=== PATIENT | female | born 1940 | race Caucasian/White ===

== ENCOUNTER 2019-03-12 12:40 | Emergency (ER) | payer OTHER ==
--- NOTE | 2019-03-12 13:12 | PDOC ---
History of Present Illness - General Chief Complaint: Injury Stated Complaint: FALL Time Seen by Provider: 03/12/19 13:11 History Source: Patient Exam Limitations: No Limitations - History of Present Illness Initial Comments: 03/12/19 13:11 Sources: Patient (aphasic) and [facility] records HPI: 78yo F BIBEMS from [place] with PMH osteoporosis, cognitive impairment, bipolar disorder, cyclothymic disorder presenting s/p witnessed fall while transferring to wheelchair. Patient with cognitive impairment and aphasia at baseline. Not on blood thinners. No recent illnesses, sent in with stable vitals. All: NKDA Meds: Pregabalin 25mg daily PMH: psychiatric PSH: unknown Past History - Travel Traveled outside of the country in the last 30 days: No Close contact w/someone who was outside of country & ill: No - Past Medical History Allergies/Adverse Reactions: Allergies Allergy/AdvReac Type Severity Reaction Status Date / Time No Known Allergies Allergy Verified 03/12/19 13:40 Home Medications: Ambulatory Orders Chlorhexidine Gluconate 10 ml MM AC 03/12/19 Pregabalin [Lyrica] 25 mg PO BID 03/12/19 Pseudoephedrine HCl [Nasal Decongestant] 30 mg PO Q8H PRN 03/12/19 Review of Systems - Review of Systems Able to Perform ROS?: No (patient condition) Is the patient limited Romanian proficient: No *Physical Exam - Physical Exam Comments: 03/12/19 13:50 Afebrile with stable vitals, HR in upper 40s at rest Elderly woman, laying in bed with eyes closed, no acute distress, minimally interactive with exam Large baseball sized bruise on forehead, no crepitus / step off, no epistaxis or morphologic changes EOMI, PERRL RRR, nl s1s2, no murmurs appreciated CTABL, normal WOB, no wheezes appreciated Soft, nontender, nondistended Patient nonverbal, opens eyes to voice, looks around the room, said "yes" once but doesn't respond to questions about pain ED Treatment Course - LABORATORY CBC & Chemistry Diagram: 03/12/19 14:20 03/12/19 14:20 Medical Decision Making - Medical Decision Making 03/12/19 13:43 78yo woman BIBEMS from CT ([facility]) s/p fall while transitioning to wheelchair with head trauma. -CBC, CMP, CP -Lipase, BNP, PT/INR, PTT -EKG, CXR -NCHCT 03/12/19 14:29 -EKG with sinus bradycardia, normal axis, normal morphologies, no ischemic changes evident 03/12/19 14:44 -Call placed to patient Primary Doctor, Lindy Joseph ([phone]), left a voicemail -Patient is currently at CT 03/12/19 15:06 -CXR without acute pathology -NCHCT without bleed, chronic changes apparent 03/12/19 15:07 -No leukocytosis or anemia, no electrolyte disturbances, normal troponin, normal lipase and coags 03/12/19 15:15 -Call placed to patient's NH, transferred to voicemail 03/12/19 15:37 -Spoke with patient's PCP Dr. Joseph, patient is at baseline when she opens here eyes to voice, occasionally gives a "yes or mhmm" and will smile at a very good joke or may recognize her sister on a good day. This baseline is consistent with her ED presentation. Reports the patient has a reclining wheelchair and an electric mechanical lift and would have have at least two people with her at the time of her fall and "it could not have been a very hard fall." -Dr. Joseph plants to see the patient tomorrow morning. -[facility] has yet to place a return phone call. -NCHCT without sign of bleed, labs unremarkable. Patient safe for discharge back to facility. Dispo: home Discharge - Discharge Information Problems reviewed: Yes Clinical Impression/Diagnosis: Fall Qualifiers: Encounter type: initial encounter Qualified Code(s): W19.XXXA - Unspecified fall, initial encounter Condition: Stable Disposition: [facility] - Admission No - Follow up/Referral Referrals: Lindy Joseph [Primary Care Provider] - - Patient Discharge Instructions Patient Printed Discharge Instructions: How to Prevent Falls Additional Instructions: Patient at baseline with non-contrast head CT without signs of acute intracranial pathology. Labs unremarkable. EKG with sinus bradycardia. - Post Discharge Activity - Transfer to Acute Care Facility Transfer Comment: 03/12/19 15:[address] [facility] [address] [place] [address]
[2019-03-12 13:36] VITALS: PULSE 45; BMI 23.3
[2019-03-12 13:40] VITALS: BP 126/64; TEMP 98
[2019-03-12 14:34] LABS: BASO % 0.5 % (0-2.0); HEMATOCRIT 43.9 % (32.4-45.2); HEMOGLOBIN 14.8 GM/dL (10.7-15.3); LYMPH % 20.7 % (8-40); MCHC 33.7 g/dl (32.0-36.0); MEAN CELL VOLUME 92.1 fl (80-96); MEAN PLT VOLUME 7.7 fl (7.5-11.1); NEUT % 68.8 % (42.8-82.8); PLATELET COUNT 227 K/MM3 (134-434); RBC 4.77 M/mm3 (3.60-5.2); RDW 13.5 % (11.6-15.6); WHITE BLOOD COUNT 5.2 K/mm3 (4.0-10.0)
[2019-03-12 14:44] LABS: INR 0.9 (0.83-1.09); PROTHROMBIN TIME (PATIENT) 10.6 SEC (9.7-13.0)
[2019-03-12 14:46] LABS: ACTIVATED PTT 28.9 SECONDS (25.2-36.5)
[2019-03-12 14:59] LABS: ALBUMIN 3.5 g/dl (3.4-5.0); BILIRUBIN,TOTAL 0.5 mg/dL (0.2-1); BLOOD UREA NITROGEN 24.2 mg/dL (7-18); CALCIUM 9.3 mg/dL (8.5-10.1); POTASSIUM 4.7 mmol/L (3.5-5.1); TOT PROT 7.3 g/dl (6.4-8.2)
--- NOTE | 2019-03-12 16:21 | PDOC ---
Documentation entered by Cindy Fitch SCRIBE, acting as scribe for Campbell Wen MD. Campbell Wen MD: This documentation has been prepared by the Little aguillon Adrianna, SCRIBE, under my direction and personally reviewed by me in its entirety. I confirm that the documentation accurately reflects all work, treatment, procedures, and medical decision making performed by me. Attending Attestation - Resident Resident Name: MichaelMaksim - ED Attending Attestation I have performed the following: I have examined & evaluated the patient, The case was reviewed & discussed with the resident, I agree w/resident's findings & plan, Exceptions are as noted - HPI HPI: The patient is a 78 year old female, with a significant PMH of osteoporosis, cognitive impairment, bipolar disorder, and cyclothymic disorder, who presents to the ED BIBA from [facility] for evaluation s/p unwitnessed fall. As per nursing note, patient fell while getting out of her wheelchair. She hit her head, and presents with a bruise to the left side of the forehead. HPI is limited secondary to patient being a non-historian. Allergies: NKA, NKDA Surgical History: None reported Social History: [facility] resident. Not toxic habits - Physicial Exam PE: 03/12/19 16:15 GENERAL: The patient is awake, alert, oriented x 1. HEAD: Normocephalic, contusion to frontl scalp withou crepitus, stepoffs, sof tissue swelling. EYES: sclera anicteric, conjunctiva clear. ENT: Normal voice, Moist mucous membranes. NECK: supple, no mildine tenderness LUNGS: Breath sounds equal, clear to auscultation bilaterally. No wheezes, no rhonchi, no rales. HEART: bradycardic ABDOMEN: Soft, nontender EXTREMITIES: Normal range of motion of hip. knees, hip and knee held in contracted posiiton but is abl eto flex/extend without any pain NEUROLOGICAL: No facial assymetry, Normal speech, PSYCH:flat affect. SKIN: Warm, Dry, normal turgor, - Medical Decision Making 03/12/19 14:46 78y F preseneting spfall while transitinning to wheelchair. history limited from pt and resident was able to obtain some data from the [place] will obtain lab work and imaging 03/12/19 16:20 ct negative labs reviewed pt at baseline metnal status per PMD will dc back [facility]
--- NOTE | 2019-03-14 08:28 | EKG ---
Test Reason : Blood Pressure : / mmHG Vent. Rate : 046 BPM Atrial Rate : 046 BPM P-R Int : 212 ms QRS Dur : 078 ms QT Int : 444 ms P-R-T Axes : 041 009 054 degrees QTc Int : 388 ms SINUS BRADYCARDIA WITH 1ST DEGREE A-V BLOCK OTHERWISE NORMAL ECG NO PREVIOUS ECGS AVAILABLE Confirmed by Maxine Arboleda ([id number]) on 03/14/2019 8:28:04 AM Referred By: Confirmed By:Maxine Arboleda
== END 2019-03-12 17:10 ==
LOC: JER 12:40
DX: S00.83XA Contusion of other part of head, initial encounter (principal); W05.0XXA Fall from non-moving wheelchair, initial encounter; Y93.89 Activity, other specified; Y92.122 Bedroom in nursing home as the place of occurrence of the external cause; Y99.8 Other external cause status; R47.01 Aphasia; G31.84 Mild cognitive impairment of uncertain or unknown etiology; F31.9 Bipolar disorder, unspecified; M19.90 Unspecified osteoarthritis, unspecified site; F34.0 Cyclothymic disorder
CPT/HCPCS: 36415; 70450-TC; 71045-TC-FY; 80053; 82550; 84484; 85025; 85610; 85730; 93005; 93010; 99282-25

== ENCOUNTER 2019-03-17 11:03 | Inpatient (IN) | payer OTHER ==
[2019-03-17 11:37] VITALS: BMI 23.3
--- NOTE | 2019-03-17 13:01 | PDOC ---
Documentation entered by Cindy Fitch SCRIBE, acting as scribe for Nicole Villafuerte MD. Nicole Villafuerte MD: This documentation has been prepared by the Little aguillon Adrianna, SCRIBE, under my direction and personally reviewed by me in its entirety. I confirm that the documentation accurately reflects all work, treatment, procedures, and medical decision making performed by me. History of Present Illness - General Chief Complaint: Wound Stated Complaint: Abscess Boil Time Seen by Provider: 03/17/19 11:50 History Source: Patient Exam Limitations: No Limitations - History of Present Illness Initial Comments: The patient is a 78 year old female, with a significant PMH of osteoporosis, cognitive impairment, bipolar disorder, and cyclothymic disorder, who presents to the ED BIBA from [facility] for evaluation blistering for 4 days (r/o shingles as per nursing note). As per nursing note, patient developed a blister on her left thigh. The patient continuously scratched the blister, and it traveled to bilateral upper and lower extremities. She was placed on Valacyclovir 3 days ago and Calamine lotion 2 days ago without any change in symptoms. HPI is limited secondary to patient being a non-historian. Patient is DNR, DNI, and limited antibiotic use as per nursing note paperwork. Allergies: NKA, NKDA Surgical History: None reported Social History: [facility] resident. Not toxic habits PCP: Dr. Joseph Past History - Past Medical History Allergies/Adverse Reactions: Allergies Allergy/AdvReac Type Severity Reaction Status Date / Time No Known Allergies Allergy Verified 03/18/19 05:43 Home Medications: Ambulatory Orders Chlorhexidine Gluconate 10 ml MM AC 03/12/19 Pregabalin [Lyrica] 25 mg PO BID 03/12/19 Pseudoephedrine HCl [Nasal Decongestant] 30 mg PO Q8H PRN 03/12/19 Calamine 8% Topical Lotion - 1 applic TP BID 03/17/19 Calcium Acetate/Aluminum Sulf [Domeboro Packet] 1 each TP BID PRN #60 packet Niacin*ER* [Niaspan (Non-Formulary)*ER* -] 500 mg PO DAILY #30 tablet.er Valacyclovir HCl [Valtrex -] 500 mg PO DAILY 03/17/19 predniSONE [Deltasone -] 60 mg PO DAILY #20 tablet 03/17/19 COPD: No Psychiatric Problems: Yes (cytlothymic disorder, bipolar, cognitive imparment) Thyroid Disease: (osteroporosis.) - Immunization History Immunization Up to Date: Yes - Psycho Social/Smoking Cessation Hx Smoking History: Unknown if ever smoked Have you smoked in the past 12 months: No Information on smoking cessation initiated: No Hx Alcohol Use: No Drug/Substance Use Hx: No Review of Systems - Review of Systems Able to Perform ROS?: No (2/2 non-historian) *Physical Exam - Vital Signs Last Vital Signs Temp Pulse Resp BP Pulse Ox 98.8 F 63 17 101/80 98 03/17/19 11:20 03/17/19 11:20 03/17/19 11:20 03/17/19 11:20 03/17/19 11:20 - Physical Exam Comments: GENERAL: The patient is in no acute distress. HEAD: Normal with no signs of trauma. EYES: PERRLA, EOMI, sclera anicteric, conjunctiva clear. ENT: +Mucus surrounding the right eye. Ears normal, nares patent, oropharynx clear without exudates. Moist mucous membranes. NECK: Normal range of motion, supple without lymphadenopathy, JVD, or masses. LUNGS: Breath sounds equal, clear to auscultation bilaterally. No wheezes, and no crackles. HEART:Regular rate and rhythm, normal S1 and S2 without murmur, rub or gallop. ABDOMEN: Soft, nontender, normoactive bowel sounds. No guarding, no rebound. No masses palpable. EXTREMITIES: Normal range of motion, no edema. No clubbing or cyanosis. NEUROLOGICAL: +Dysphasic. Cranial nerves II through XII grossly intact. No focal neurological deficits. MUSCULOSKELETAL: Back nontender to palpation, no CVA tenderness SKIN: +Diffuse rash. +Base is erythematous with blisters, which some contain clear fluid or scabbing. +Some blisters measure upwards of 3 sonometers in diameter, predominantly involving in the upper and lower extremities. +Diffuse erythematous macules of the back. +Ecchymosis of the dorsal aspect of the hand. Warm, Dry, normal turgor. ED Treatment Course - LABORATORY CBC & Chemistry Diagram: 03/18/19 07:15 03/18/19 07:15 - RADIOLOGY Radiology Studies Ordered: Category Date Time Status CHEST X-RAY PORTABLE* [RAD] Stat Radiology 03/17/19 12:45 Ordered Medical Decision Making - Medical Decision Making 03/17/19 12:47 Ms. Turk is a 78-year-old female with a history of aphasia and cognitive decline who presents emergency department for evaluation of a rash. The first blister was actually noticed on Friday (4 days ago close ). The patient apparently scratched the area and then she was noted to have several more blisters on the left leg as well as the right leg arms and trunk. Patient has had no fevers or chills. Patient has had no nausea vomiting or diarrhea. Patient is largely unable to give any history although she is noticed to be itching Per chart review, the patient was started on valacyclovir 3 days ago as well as Examination reveals: Diffuse erythematous based blisters some of which are small (7 mm), some of which are several centimeters in diameter. There are some areas of crusting. I see no lesions on her lip Patient's conjunctiva are noninjected although the right eye definitely appears to have purulent discharge. We will do: Labs EKG Dermatology consult We will plan to admit 03/17/19 13:[address] Newman She thinks this is possibly phemphigoid If no fever or wbc, pt can be discharged I have relayed to Dr. Newman that this patient will be challenging to manage at the facility I have called Dr. Spangler who confirms this patient is not appropriate for the facility Will plan to admit 03/17/19 14:14 EKG: Sinus rhythm rate of 49 bpm, axis nml, intervals nml, no st elevation, low voltage overall 03/17/19 15:45 Laboratory Tests 03/17/19 03/17/19 15:08 15:08 WBC 6.6 Hgb 15.3 Hct 46.0 H Plt Count 236 BUN 29.2 H Creatinine 1.0 Pt appears pre renal Will gently hydrate Will plan to admit 03/17/19 16:[address] Cook for admission. She states patient can be managed at the facility. She will be able to see her tomorrow and Friday. Call placed to Dr. Blackburn/dermatology. She states she can see this patient as an outpatient tomorrow in her office for biopsy. Recommends prednisone 60 mg p.o. daily, Niaspan 500 twice daily, Boro solution topically twice daily Maalox along with the prednisone, Discharge - Discharge Information Problems reviewed: Yes Clinical Impression/Diagnosis: Bullous dermatosis, Rash and nonspecific skin eruption Condition: Stable - Admission Yes - Follow up/Referral - Patient Discharge Instructions - Post Discharge Activity
--- NOTE | 2019-03-17 14:47 | EKG ---
Test Reason : Blood Pressure : / mmHG Vent. Rate : 049 BPM Atrial Rate : 049 BPM P-R Int : 184 ms QRS Dur : 078 ms QT Int : 440 ms P-R-T Axes : 000 020 064 degrees QTc Int : 397 ms SINUS BRADYCARDIA LOW VOLTAGE QRS BORDERLINE ECG WHEN COMPARED WITH ECG OF 12-MAR-2019 13:45, NO SIGNIFICANT CHANGE WAS FOUND Confirmed by NARCISO DOZIER MD ([id number]) on 03/17/2019 2:46:56 PM Referred By: Confirmed By:NARCSIO DOZIER MD
[2019-03-17 15:17] LABS: BASO % 0.6 % (0-2.0); EOS % 3.8 % (0-4.5); HEMOGLOBIN 15.3 GM/dL (10.7-15.3); LYMPH % 17.3 % (8-40); MCH 30.8 pg (25.7-33.7); MCHC 33.3 g/dl (32.0-36.0); MEAN CELL VOLUME 92.6 fl (80-96); MEAN PLT VOLUME 7.7 fl (7.5-11.1); MONO % 6.9 % (3.8-10.2); NEUT % 71.4 % (42.8-82.8); PLATELET COUNT 236 K/MM3 (134-434); RBC 4.97 M/mm3 (3.60-5.2); RDW 13.2 % (11.6-15.6); WHITE BLOOD COUNT 6.6 K/mm3 (4.0-10.0)
[2019-03-17 15:43] LABS: ALBUMIN 3.4 g/dl (3.4-5.0); BILIRUBIN,TOTAL 0.4 mg/dL (0.2-1); BLOOD UREA NITROGEN 29.2 mg/dL (7-18); CALCIUM 8.6 mg/dL (8.5-10.1); POTASSIUM 4.6 mmol/L (3.5-5.1); TOT PROT 6.7 g/dl (6.4-8.2)
[2019-03-17] MEDS: SODIUM CHLORIDE 1,000 ML IV SCH (15:53)
[2019-03-17] MEDS ORDERED: predniSONE 20 MG TABLET (UD) PO ONE (16:53)
[2019-03-17] MEDS ORDERED: MAG HYDROX/AL HYDROX/SIMETH 30 ML UNIT-DOSE CUP PO ONE (16:53)
[2019-03-17] MEDS ORDERED: predniSONE 20 MG TABLET (UD) ONE (17:05)
[2019-03-17] MEDS ORDERED: MAG HYDROX/AL HYDROX/SIMETH 30 ML UNIT-DOSE CUP ONE (17:06)
[2019-03-17] MEDS ORDERED: ACETAMINOPHEN 325 MG TABLET (FP) PO PRN (18:36)
--- NOTE | 2019-03-17 18:49 | HP ---
Admitting History and Physical - Admission History of Present Illness: 78 year old female, with a significant PMH of osteoporosis, cognitive impairment, bipolar disorder, and cyclothymic disorder, who presents to the ED BIBA from [facility] for evaluation blistering for 4 days (r/o shingles as per nursing note). As per nursing note, patient developed a blister on her left thigh. The patient continuously scratched the blister, and it traveled to bilateral upper and lower extremities. She was placed on Valacyclovir 3 days ago and Calamine lotion 2 days ago without any change in symptoms. HPI is limited secondary to patient being a non-historian. Patient is DNR, DNI, and limited antibiotic use as per nursing note paperwork. Allergies: NKA, NKDA Surgical History: None reported Social History: [facility] resident. Not toxic habits PCP: Dr. 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: Yes: Alzheimer's, Dementia Reproductive: Yes: Postmenopausal Psych: Yes: Anxiety, Bipolar, Psychosis Musculoskeletal: Yes: Chronic low back pain, Osteoarthritis Rheumatology: Yes: Vasculitis - Advance Directives Advance Directives: Yes: Living Will - Smoking History Smoking history: Unknown if ever smoked Have you smoked in the past 12 months: No - Alcohol/Substance Use Hx Alcohol Use: No History of Substance Use: reports: None - Social History Usual Living Arrangement: Yes: Assisted Living ADL: Family Assistance History of Recent Travel: No Home Medications - Allergies Allergies/Adverse Reactions: Allergies Allergy/AdvReac Type Severity Reaction Status Date / Time No Known Allergies Allergy Verified 03/18/19 05:43 - Home Medications Home Medications: Ambulatory Orders Chlorhexidine Gluconate 10 ml MM AC 03/12/19 Pregabalin [Lyrica] 25 mg PO BID 03/12/19 Pseudoephedrine HCl [Nasal Decongestant] 30 mg PO Q8H PRN 03/12/19 Calamine 8% Topical Lotion - 1 applic TP BID 03/17/19 Calcium Acetate/Aluminum Sulf [Domeboro Packet] 1 each TP BID PRN #60 packet Niacin*ER* [Niaspan (Non-Formulary)*ER* -] 500 mg PO DAILY #30 tablet.er Valacyclovir HCl [Valtrex -] 500 mg PO DAILY 03/17/19 predniSONE [Deltasone -] 60 mg PO DAILY #20 tablet 03/17/19 Physical Examination Vital Signs: Vital Signs Temperature 97.8 F 03/17/19 17:15 Pulse Rate 54 L 03/17/19 17:15 Respiratory Rate 20 03/17/19 17:15 Blood Pressure 117/65 03/17/19 17:15 O2 Sat by Pulse Oximetry (%) 95 03/17/19 17:15 Constitutional: Yes: Well Nourished, No Distress, Calm, Other (non verbal) Eyes: Yes: Conjunctiva Clear, EOM Intact HENT: Yes: Atraumatic, Normocephalic Neck: Yes: Trachea Midline Cardiovascular: Yes: Regular Rate and Rhythm Respiratory: Yes: CTA Bilaterally Gastrointestinal: Yes: Normal Bowel Sounds, Soft ...Rectal Exam: Yes: Deferred Renal/: Yes: WNL Breast(s): Yes: WNL Musculoskeletal: Yes: Joint Stiffness, Other (contracture LE) Extremities: Yes: Other (excoriations ane eruption on external right thigh Left thigh with bullous formation inner proximal ant thigh) Edema: No Peripheral Pulses WNL: Yes Integumentary: Yes: Erythema Wound/Incision: Yes: Bleeding (some site scratched by patient and small amount of bleeding from area), Excoriated Psychiatric: Yes: Suicidal Ideation Labs: CBC, BMP 03/17/19 15:08 03/17/19 15:08 Problem List - Problems (1) Bullous dermatosis Code(s): L13.9 - BULLOUS DISORDER, UNSPECIFIED (2) Bullous pemphigoid Code(s): 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
[2019-03-17] MEDS ORDERED: diphenhydrAMINE HCL 25 MG CAPSULE (FP) PO PRN (18:53)
[2019-03-17] MEDS ORDERED: LORazepam 0.5 MG TABLET PO PRN (18:57)
[2019-03-17] MEDS: PANTOPRAZOLE 40 MG TABLET (FP) PO SCH (20:04)
[2019-03-17] MEDS: methylPREDNISolone NA SUCC 40 MG/1 ML VIAL IVPUSH SCH (20:04)
[2019-03-17] MEDS ORDERED: PREGABALIN 25 MG CAPSULE ONE (22:40)
[2019-03-17] MEDS: BETAMETHASONE DIPR 0.05% OINTMENT 15 GM TUBE TP SCH (22:58)
[2019-03-17] MEDS: CALCIUM ACETATE/AL SULFATE TOP 1.9 GM/PACKET PACKET TP SCH (22:59)
[2019-03-17] MEDS: PREGABALIN 25 MG CAPSULE PO SCH (22:59)
[2019-03-18 07:41] LABS: HEMATOCRIT 41.9 % (32.4-45.2); HEMOGLOBIN 14.1 GM/dL (10.7-15.3); MCH 31.5 pg (25.7-33.7); MCHC 33.7 g/dl (32.0-36.0); MEAN CELL VOLUME 93.5 fl (80-96); MEAN PLT VOLUME 7.9 fl (7.5-11.1); PLATELET COUNT 216 K/MM3 (134-434); RBC 4.49 M/mm3 (3.60-5.2); RDW 13.3 % (11.6-15.6); WHITE BLOOD COUNT 5.8 K/mm3 (4.0-10.0)
[2019-03-18 07:59] LABS: INR 0.94 (0.83-1.09); PROTHROMBIN TIME (PATIENT) 11.1 SEC (9.7-13.0)
[2019-03-18 08:21] LABS: ALBUMIN 3.2 g/dl (3.4-5.0); BILIRUBIN,TOTAL 0.4 mg/dL (0.2-1); BLOOD UREA NITROGEN 29.1 mg/dL (7-18); CALCIUM 8.6 mg/dL (8.5-10.1); POTASSIUM 4.7 mmol/L (3.5-5.1); TOT PROT 6.6 g/dl (6.4-8.2)
[2019-03-18] MEDS ORDERED: PREGABALIN 25 MG CAPSULE ONE ×2 (10:49→23:41)
[2019-03-18] MEDS: BETAMETHASONE DIPR 0.05% OINTMENT 15 GM TUBE TP SCH (11:00)
[2019-03-18] MEDS: PREGABALIN 25 MG CAPSULE PO SCH (11:00)
[2019-03-18] MEDS: CALCIUM ACETATE/AL SULFATE TOP 1.9 GM/PACKET PACKET TP SCH (11:00)
[2019-03-18] MEDS: methylPREDNISolone NA SUCC 40 MG/1 ML VIAL IVPUSH SCH (11:00)
[2019-03-18] MEDS: PANTOPRAZOLE 40 MG TABLET (FP) PO SCH (11:00)
--- NOTE | 2019-03-18 12:26 | PN ---
Progress Note (short form) - Note Progress Note: Patient seen and examined in ER patient unable to provide any hx chart reviewed - no hx of fever / chills chart documents psychiatric disease / aphasia / anxiety / ?dementia patient with LE contracture mildly combative with exam Vital Signs Period Temp Pulse Resp BP Sys/Boyd Pulse Ox Last 24 Hr 97.8 F-97.8 F 54-113 13-20 96-158/41-78 95-97 heart s1/S2 lungs clear bilat - poor insp effort abd soft non tender ext no edema skin bullae- vesicles on erythematous base diffusely over trunk and increased on LE CBC, BMP 03/18/19 07:15 03/18/19 07:15 Active Medications Acetaminophen (Tylenol -) 650 mg PO Q4H PRN PRN Reason: PAIN LEVEL 1-5 Aluminum Sulfate/Calcium Acetate (Domeboro -) 1.9 gm TP BID [facility] Last Admin: 03/17/19 22:59 Dose: 1.9 gm Bacitracin (Bacitracin -) 1 applic TP BID PETRA Betamethasone Dipropionate (Diprosone 0.05% Ointment -) 1 applic TP BID [facility] Last Admin: 03/17/19 22:58 Dose: 1 applic Chlorhexidine Gluconate (Peridex -) 10 ml MM AC PETRA Diphenhydramine HCl (Benadryl -) 25 mg PO Q6H PRN PRN Reason: FOR ITCHING Sodium Chloride (Normal Saline -) 1,000 mls @ 83 mls/hr IV ASDIR [facility] Last Admin: 03/17/19 15:53 Dose: 83 mls/hr Cefazolin Sodium (Ancef 1 Gm Premixed Ivpb -) 1 gm in 50 mls @ 100 mls/hr IVPB Q8H-IV PETRA Lorazepam (Ativan -) 0.5 mg PO BID PRN PRN Reason: AGITATION Methylprednisolone Sodium Succinate (Solu-Medrol -) 60 mg IVPUSH DAILY [facility] Last Admin: 03/17/19 20:04 Dose: 60 mg Niacin (Niacin) 500 mg PO BID PETRA Pantoprazole Sodium (Protonix -) 40 mg PO DAILY [facility] Last Admin: 03/17/19 20:04 Dose: 40 mg Pregabalin (Lyrica -) 25 mg PO BID [facility] Last Admin: 03/17/19 22:59 Dose: 25 mg Dermatology consult done this am -- Bx performed # Bullous disease likely bullous pemphigoid, r/o bullous drug reaction r/o pemphigus ------ await BX discussed with Dr Newman PLan : IV streoids / PPi Niacin 500 BID local care to BX site local care to bullous ABX cover for skin infection should get mits to prevent scratching
[2019-03-18] MEDS: CEFAZOLIN 1 GM/D5W 1 GM/50 ML BAG IVPB SCH ×2 (16:06→18:09)
[2019-03-18] MEDS ORDERED: PT OWN MED DRAWER 7, Y5N ONE (16:24)
[2019-03-18] MEDS ORDERED: BACITRACIN 0.9 GM PACKET ONE (16:59)
[2019-03-18] MEDS: NIACIN 500 MG TABLET PO SCH (17:00)
[2019-03-18] MEDS: SODIUM CHLORIDE 1,000 ML IV SCH (17:00)
[2019-03-18] MEDS: BACITRACIN 15 GM TUBE TOPICAL OINTMENT TP SCH (17:13)
[2019-03-18] MEDS ORDERED: CEFAZOLIN 1 GM/D5W 1 GM/50 ML BAG ONE (23:42)
[2019-03-19] MEDS: NIACIN 500 MG TABLET PO SCH ×2 (01:54→10:19)
[2019-03-19] MEDS: CEFAZOLIN 1 GM/D5W 1 GM/50 ML BAG IVPB SCH ×2 (02:13→10:13)
[2019-03-19] MEDS ORDERED: PREGABALIN 25 MG CAPSULE ONE (10:12)
[2019-03-19] MEDS: BACITRACIN 15 GM TUBE TOPICAL OINTMENT TP SCH ×2 (10:14)
[2019-03-19] MEDS: BETAMETHASONE DIPR 0.05% OINTMENT 15 GM TUBE TP SCH ×2 (10:14)
[2019-03-19] MEDS: PREGABALIN 25 MG CAPSULE PO SCH ×2 (10:15)
[2019-03-19] MEDS: methylPREDNISolone NA SUCC 40 MG/1 ML VIAL IVPUSH SCH (10:19)
[2019-03-19] MEDS: PANTOPRAZOLE 40 MG TABLET (FP) PO SCH (10:19)
[2019-03-19] MEDS: SODIUM CHLORIDE 1,000 ML IV SCH (10:20)
[2019-03-19] MEDS ORDERED: CHLORHEXIDINE GLUCONATE 0.12% 15ML CUP MM SCH (12:30)
[2019-03-19] MEDS: CALCIUM ACETATE/AL SULFATE TOP 1.9 GM/PACKET PACKET TP SCH ×2 (14:04)
--- NOTE | 2019-03-19 14:08 | PN ---
Progress Note (short form) - Note Progress Note: Patient seen and examined in ER remains in ER awwiting bed patient unable to provide any hx case discussed with Dr Newman BX report back this afternoon patient with LE contracture mildly combative with exam Vital Signs Period Temp Pulse Resp BP Sys/Boyd Pulse Ox Last 24 Hr 98.4 F-98.7 F 52-69 18-20 121-143/54-77 93-95 heart s1/S2 lungs clear bilat - poor insp effort abd soft non tender ext no edema skin bullae- vesicles on erythematous base diffusely over trunk and increased on LE CBC, BMP 03/18/19 07:15 03/18/19 07:15 BX report Subepidermal Bulla consistent with Bullous pemphigoid Active Medications Acetaminophen (Tylenol -) 650 mg PO Q4H PRN PRN Reason: PAIN LEVEL 1-5 Aluminum Sulfate/Calcium Acetate (Domeboro -) 1.9 gm TP BID [facility] Last Admin: 03/19/19 14:04 Dose: 1.9 gm Bacitracin (Bacitracin -) 1 applic TP BID [facility] Last Admin: 03/19/19 10:14 Dose: 1 applic Betamethasone Dipropionate (Diprosone 0.05% Ointment -) 1 applic TP BID [facility] Last Admin: 03/19/19 10:14 Dose: 1 applic Chlorhexidine Gluconate (Peridex -) 15 ml MM BID PETRA Sodium Chloride (Normal Saline -) 1,000 mls @ 83 mls/hr IV ASDIR [facility] Last Admin: 03/19/19 10:20 Dose: 83 mls/hr Methylprednisolone Sodium Succinate (Solu-Medrol -) 60 mg IVPUSH DAILY [facility] Last Admin: 03/19/19 10:19 Dose: 60 mg Niacin (Niacin) 500 mg PO BID [facility] Last Admin: 03/19/19 10:19 Dose: 500 mg Pantoprazole Sodium (Protonix -) 40 mg PO DAILY [facility] Last Admin: 03/19/19 10:19 Dose: 40 mg Pregabalin (Lyrica -) 25 mg PO BID [facility] Last Admin: 03/19/19 10:15 Dose: 25 mg Dermatology consult done -- Bx performed 03/18/19 # Bullous disease BX report Subepidermal Bulla consistent with Bullous pemphigoid Bx c/w bullous pemphigoid, discussed with Dr Newman PLan : IV streoids / PPi change to PO Niacin 500 BID local care to BX site -bacitacin topically bid local care to bullous ABX cover for skin infection- done should get mits to prevent scratching plan to return to assisted living facility today
--- NOTE | 2019-03-19 14:19 | DS ---
Physical Examination Vital Signs: Vital Signs Temperature 98.4 F 03/19/19 10:00 Pulse Rate 60 03/19/19 10:00 Respiratory Rate 18 03/19/19 10:00 Blood Pressure 137/67 03/19/19 10:00 O2 Sat by Pulse Oximetry (%) 95 03/19/19 00:10 Findings/Remarks: 78 year old female, with a significant PMH of osteoporosis, cognitive impairment, bipolar disorder, and cyclothymic disorder, who presents to the ED BIBA from [facility] for evaluation blistering for 4 days (r/o shingles as per nursing note). As per nursing note, patient developed a blister on her left thigh. The patient continuously scratched the blister, and it traveled to bilateral upper and lower extremities. She was placed on Valacyclovir 3 days ago and Calamine lotion 2 days ago without any change in symptoms. HPI is limited secondary to patient being a non-historian. Patient is DNR, DNI, and limited antibiotic use as per nursing note paperwork. Allergies: NKA, NKDA Surgical History: None reported Social History: [facility] resident. Not toxic habits PCP: Dr. Joseph Dermatology consult done -- Bx performed 03/18/19 # Bullous disease BX report Subepidermal Bulla consistent with Bullous pemphigoid Bx c/w bullous pemphigoid, discussed with Dr Newman PLan : IV streoids / PPi change to PO Niacin 500 BID local care to BX site -bacitacin topically bid local care to bullous ABX cover for skin infection- done should get mits to prevent scratching plan to return to assisted living facility today Dr Joseph contacted and case discussed regarding POC Constitutional: Yes: Well Nourished, No Distress Eyes: Yes: Conjunctiva Clear, EOM Intact HENT: Yes: Atraumatic, Normocephalic Cardiovascular: Yes: Regular Rate and Rhythm Respiratory: Yes: CTA Bilaterally Gastrointestinal: Yes: Normal Bowel Sounds, Soft ...Rectal Exam: Yes: Deferred Renal/: Yes: WNL Breast(s): Yes: WNL Musculoskeletal: Yes: Joint Stiffness, Other (lower ext contracture) Extremities: Yes: Other (diffuse vesicular rash with erythematous base external right thigh and bullous formation on right thigh) Edema: No Peripheral Pulses WNL: Yes Integumentary: Yes: Erythema, Other (see above) Wound/Incision: Yes: Excoriated, Other (bullous disease LE) Neurological: Yes: Aphasia, Other (no ambulation) Labs: CBC, BMP 03/18/19 07:15 03/18/19 07:15 Discharge Summary Problems reviewed: Yes Reason For Visit: BLISTERING ERUPTION Current Active Problems Bullous dermatosis (Acute) Rash and nonspecific skin eruption (Acute) Condition: Stable - Instructions Referrals: Lindy Joseph [Primary Care Provider] - Disposition: HOME - Home Medications Comprehensive Discharge Medication List: Ambulatory Orders Chlorhexidine Gluconate 10 ml MM AC 03/12/19 Pregabalin [Lyrica] 25 mg PO BID 03/12/19 Pseudoephedrine HCl [Nasal Decongestant] 30 mg PO Q8H PRN 03/12/19 Calamine 8% Topical Lotion - 1 applic TP BID 03/17/19 Calcium Acetate/Aluminum Sulf [[place] Packet] 1 each TP BID PRN #60 packet Niacin*ER* [Niaspan (Non-Formulary)*ER* -] 500 mg PO BID #30 tablet.er 03/17/19 predniSONE [Deltasone -] 60 mg PO DAILY #20 tablet 03/17/19 protonix 40mg q day
[2019-03-19 15:29] VITALS: BP 138/70; PULSE 62; TEMP 98.5
== END 2019-03-19 17:40 | disposition home or self-care (01) | DRG 596 ==
LOC: JER 11:03 → JERBED 13:49
PROVIDERS: ADMIT Family Medicine; ATTEND Family Medicine
PROC: 0HBLXZX Excision of Left Lower Leg Skin, External Approach, Diagnostic (ICD-10-PCS; principal; 2019-03-18)
DX: L12.0 Bullous pemphigoid (principal); R47.01 Aphasia; M81.0 Age-related osteoporosis without current pathological fracture
CPT/HCPCS: 36415; 71045-TC-FY; 80053; 84443; 85025; 85027; 85610; 87040; 93005; 93010; 99285-25; J7030

== ENCOUNTER 2020-08-16 10:49 | Inpatient (IN) | payer OTHER ==
[2020-08-16] MEDS ORDERED: SODIUM CHLORIDE 500 ML IV STA ×2 (11:52→13:03)
[2020-08-16 12:57] LABS: HEMATOCRIT 46.3 % (32.4-45.2); HEMOGLOBIN 15.6 GM/dL (10.7-15.3); MCH 31.1 pg (25.7-33.7); MCHC 33.6 g/dl (32.0-36.0); MEAN CELL VOLUME 92.7 fl (80-96); MEAN PLT VOLUME 7.5 fl (7.5-11.1); PLATELET COUNT 255 K/MM3 (134-434); RBC 4.99 M/mm3 (3.60-5.2); RDW 14.1 % (11.6-15.6); WHITE BLOOD COUNT 15.6 K/mm3 (4.0-10.0)
[2020-08-16 13:06] LABS: POTASSIUM 3.8 mmol/L (3.5-5.1)
[2020-08-16 13:09] LABS: ALBUMIN 3.1 g/dl (3.4-5.0); BLOOD UREA NITROGEN 13.6 mg/dL (7-18)
[2020-08-16 13:12] LABS: CREATININE 1.3 mg/dL (0.55-1.3)
[2020-08-16 13:13] LABS: BILIRUBIN,TOTAL 0.8 mg/dL (0.2-1)
[2020-08-16] MEDS ORDERED: ONDANSETRON 4 MG/2 ML VIAL IVPUSH ONE (13:46)
[2020-08-16] MEDS ORDERED: ONDANSETRON 4 MG/2 ML VIAL ONE (14:11)
[2020-08-16] MEDS ORDERED: DEXTROSE 5%-0.45% SALINE 1,000 ML IV SCH (14:30)
[2020-08-16 15:00] LABS: EPI CELLS >36 /uL (0-25.1); HYALINE CASTS 136 /uL (0-3.1); PH,URINE 5.5 (5.0-8.0); URINE APPEARANCE TURBID; URINE BACTERIA >9,000 /uL (0-1359); URINE BILIRUBIN NEGATIVE (NEGATIVE); URINE COLOR YELLOW; URINE GLUCOSE (UA) NEGATIVE (NEGATIVE); URINE KETONE NEGATIVE (NEGATIVE); URINE LEUK ESTERASE 3+ (NEGATIVE); URINE NITRITE POSITIVE (NEGATIVE); URINE PROTEIN 2+ (NEGATIVE); URINE WBC 22221 /uL (0-25.8)
[2020-08-16 15:01] LABS: URINE RBC 1361.8 /uL (0-23.9)
[2020-08-16] MEDS ORDERED: CEFTRIAXONE 1,000 MG in DEXTROSE 5%-WATER - 50 ML IVPB ONE (15:08)
[2020-08-16] MEDS ORDERED: PSEUDOEPHEDRINE HCL 30 MG TABLET PO PRN (15:12)
[2020-08-16] MEDS ORDERED: CALAMINE 8% TOPICAL LOTION 177 ML BOTTLE TP PRN (15:13)
[2020-08-16 15:16] LABS: ANISOCYTOSIS 0; MACROCYTOSIS 0; PLATELET ESTIMATE NORMAL
[2020-08-16 15:18] LABS: YEAST NON SEEN (NEGATIVE)
[2020-08-16] MEDS ORDERED: CEFTRIAXONE 1 GM/50 ML BAG ONE (15:24)
[2020-08-16] MEDS ORDERED: ONDANSETRON 4 MG/2 ML VIAL IVPUSH PRN (15:27)
[2020-08-16] MEDS ORDERED: D5-1/2NS+10 MEQ KCL - 10 MEQ/1,000 ML INFUS.BAG IV SCH (15:30)
[2020-08-16] MEDS ORDERED: HEPARIN NA (PORCINE) 5,000 UNITS/ML 1ML VIAL ONE (16:19)
[2020-08-16] MEDS ORDERED: PANTOPRAZOLE SODIUM 40 MG VIAL ONE (16:20)
[2020-08-16] MEDS: HEPARIN NA (PORCINE) 5,000 UNITS/ML 1ML VIAL SQ SCH ×2 (16:27→21:39)
[2020-08-16] MEDS: PANTOPRAZOLE SODIUM 40 MG VIAL IVPUSH SCH (16:27)
[2020-08-16] MEDS: DOCUSATE SODIUM 100 MG CAPSULE (FP) PO SCH (21:39)
[2020-08-16] MEDS: PREGABALIN 25 MG CAPSULE PO SCH (21:39)
[2020-08-16] MEDS: DEXTROSE 5%-0.45% SALINE 1,000 ML IV SCH (21:42)
[2020-08-16] MEDS: POLYETHYLENE GLYCOL 3350 119 GM BTL PO SCH (21:43)
[2020-08-16] MEDS ORDERED: TAMSULOSIN HCL 0.4 MG CAP PO ONE (22:46)
[2020-08-17] MEDS: HEPARIN NA (PORCINE) 5,000 UNITS/ML 1ML VIAL SQ SCH ×3 (05:33→21:44)
[2020-08-17 06:04] VITALS: BMI 21.1
[2020-08-17 09:18] LABS: N-TERMINAL BNP 347.1 pg/ml (5-450)
[2020-08-17] MEDS: POLYETHYLENE GLYCOL 3350 119 GM BTL PO SCH ×2 (09:49→21:46)
[2020-08-17] MEDS: PREGABALIN 25 MG CAPSULE PO SCH ×2 (09:49→21:46)
[2020-08-17] MEDS: DOCUSATE SODIUM 100 MG CAPSULE (FP) PO SCH ×2 (09:49→21:46)
[2020-08-17] MEDS: NIACIN 500 MG TABLET PO SCH (09:49)
[2020-08-17] MEDS: CHLORHEXIDINE GLUCONATE 0.12% 15ML CUP MM SCH (09:49)
[2020-08-17] MEDS: DEXTROSE 5%-0.45% SALINE 1,000 ML IV SCH ×2 (09:58→21:45)
[2020-08-17] MEDS: PANTOPRAZOLE SODIUM 40 MG VIAL IVPUSH SCH (09:59)
[2020-08-17 10:05] LABS: N-TERMINAL BNP 2782.6 pg/ml (5-450)
[2020-08-17] MEDS: predniSONE 1 MG TABLET (FP) PO SCH (11:28)
[2020-08-17] MEDS ORDERED: DEXTROSE 5%-WATER - 50 ML IVPB ONE ×2 (13:15→18:10)
[2020-08-17] MEDS ORDERED: PIPERACILLIN/TAZOBACTAM 2.25 GM VIAL IVPB ONE ×2 (13:15→18:10)
[2020-08-17] MEDS: PIPERACILLIN/TAZOB 2.25 GM 2.25 GM in DEXTROSE 5%-WATER - 50 ML IVPB SCH ×2 (13:18→18:13)
[2020-08-17 17:51] LABS: N-TERMINAL BNP 1941.4 pg/ml (5-450)
[2020-08-17] MEDS: METOPROLOL TARTRATE 5 MG/5 ML VIAL IVPB PRN (22:29)
[2020-08-17] MEDS ORDERED: DEXTROSE 5%-0.45% SALINE 1,000 ML IV SCH (22:30)
[2020-08-18] MEDS ORDERED: DEXTROSE 5%-WATER - 50 ML IVPB ONE ×3 (00:51→17:51)
[2020-08-18] MEDS ORDERED: PIPERACILLIN/TAZOBACTAM 2.25 GM VIAL IVPB ONE ×3 (00:51→17:51)
[2020-08-18] MEDS: PIPERACILLIN/TAZOB 2.25 GM 2.25 GM in DEXTROSE 5%-WATER - 50 ML IVPB SCH ×3 (01:02→18:01)
[2020-08-18] MEDS: HEPARIN NA (PORCINE) 5,000 UNITS/ML 1ML VIAL SQ SCH ×3 (05:50→22:46)
[2020-08-18] MEDS: METOPROLOL TARTRATE 5 MG/5 ML VIAL IVPB PRN (09:01)
[2020-08-18 09:40] LABS: BASO % 0.1 % (0-2.0); HEMATOCRIT 44.4 % (32.4-45.2); LYMPH % 2.5 % (8-40); MCHC 33.8 g/dl (32.0-36.0); MEAN CELL VOLUME 91.7 fl (80-96); MEAN PLT VOLUME 7.9 fl (7.5-11.1); MONO % 1.4 % (3.8-10.2); PLATELET COUNT 157 K/MM3 (134-434); RBC 4.84 M/mm3 (3.60-5.2); RDW 14.7 % (11.6-15.6); WHITE BLOOD COUNT 20.1 K/mm3 (4.0-10.0)
[2020-08-18 10:11] LABS: POTASSIUM 3.8 mmol/L (3.5-5.1)
[2020-08-18 10:20] LABS: BLOOD UREA NITROGEN 22.8 mg/dL (7-18); CALCIUM 8.3 mg/dL (8.5-10.1)
[2020-08-18 10:21] LABS: CREATININE 1.4 mg/dL (0.55-1.3)
[2020-08-18 10:22] LABS: BILIRUBIN,TOTAL 0.6 mg/dL (0.2-1)
[2020-08-18 10:23] LABS: TOT PROT 5.7 g/dl (6.4-8.2)
[2020-08-18 10:27] LABS: ALBUMIN 2.3 g/dl (3.4-5.0)
[2020-08-18] MEDS: predniSONE 1 MG TABLET (FP) PO SCH (10:27)
[2020-08-18] MEDS: PANTOPRAZOLE SODIUM 40 MG VIAL IVPUSH SCH (10:27)
[2020-08-18] MEDS: DOCUSATE SODIUM 100 MG CAPSULE (FP) PO SCH ×2 (10:27→21:19)
[2020-08-18] MEDS: POLYETHYLENE GLYCOL 3350 119 GM BTL PO SCH ×2 (10:27→21:20)
[2020-08-18] MEDS: NIACIN 500 MG TABLET PO SCH (10:27)
[2020-08-18] MEDS: CHLORHEXIDINE GLUCONATE 0.12% 15ML CUP MM SCH (10:27)
[2020-08-18 10:55] LABS: ANISOCYTOSIS 1+; MACROCYTOSIS 0; PLATELET ESTIMATE DECREASED
[2020-08-18] MEDS ORDERED: MINERAL OIL ENEMA 133 ML ENEMA RC ONE (11:09)
[2020-08-18] MEDS ORDERED: VANCOMYCIN 1 GRAM (PRE-DOCKED) 1,000 MG/250 ML BAG IVPB ONE (12:59)
[2020-08-18] MEDS: DEXTROSE 5%-0.45% SALINE 1,000 ML IV SCH ×2 (14:09→18:07)
[2020-08-18] MEDS ORDERED: MINERAL OIL ENEMA 133 ML ENEMA PR ONE (15:20)
[2020-08-18] MEDS: PREGABALIN 25 MG CAPSULE PO SCH (21:20)
[2020-08-19] MEDS ORDERED: DEXTROSE 5%-WATER - 50 ML IVPB ONE ×4 (02:55→21:19)
[2020-08-19] MEDS ORDERED: PIPERACILLIN/TAZOBACTAM 2.25 GM VIAL IVPB ONE ×4 (02:55→21:19)
[2020-08-19] MEDS: PIPERACILLIN/TAZOB 2.25 GM 2.25 GM in DEXTROSE 5%-WATER - 50 ML IVPB SCH ×4 (02:56→21:28)
[2020-08-19] MEDS: HEPARIN NA (PORCINE) 5,000 UNITS/ML 1ML VIAL SQ SCH ×3 (06:06→21:32)
[2020-08-19 08:52] LABS: BASO % 0.1 % (0-2.0); HEMATOCRIT 36.7 % (32.4-45.2); HEMOGLOBIN 12.4 GM/dL (10.7-15.3); LYMPH % 3.3 % (8-40); MCH 30.7 pg (25.7-33.7); MCHC 33.7 g/dl (32.0-36.0); MEAN CELL VOLUME 91.2 fl (80-96); MEAN PLT VOLUME 7.6 fl (7.5-11.1); MONO % 1.6 % (3.8-10.2); PLATELET COUNT 131 K/MM3 (134-434); RBC 4.03 M/mm3 (3.60-5.2); RDW 14.1 % (11.6-15.6); WHITE BLOOD COUNT 15.6 K/mm3 (4.0-10.0)
[2020-08-19] MEDS: PANTOPRAZOLE SODIUM 40 MG VIAL IVPUSH SCH (09:11)
[2020-08-19] MEDS: POLYETHYLENE GLYCOL 3350 119 GM BTL PO SCH ×2 (09:15→21:02)
[2020-08-19] MEDS: predniSONE 1 MG TABLET (FP) PO SCH (09:15)
[2020-08-19] MEDS: DOCUSATE SODIUM 100 MG CAPSULE (FP) PO SCH ×2 (09:15→21:02)
[2020-08-19] MEDS: DEXTROSE 5%-0.45% SALINE 1,000 ML IV SCH (09:16)
[2020-08-19] MEDS: CHLORHEXIDINE GLUCONATE 0.12% 15ML CUP MM SCH (09:16)
[2020-08-19] MEDS: NIACIN 500 MG TABLET PO SCH (09:16)
[2020-08-19 09:17] LABS: POTASSIUM 3.4 mmol/L (3.5-5.1)
[2020-08-19 09:28] LABS: BLOOD UREA NITROGEN 20.9 mg/dL (7-18); CALCIUM 7.8 mg/dL (8.5-10.1)
[2020-08-19 09:32] LABS: CREATININE 1.3 mg/dL (0.55-1.3)
[2020-08-19 09:33] LABS: BILIRUBIN,TOTAL 0.8 mg/dL (0.2-1); TOT PROT 4.8 g/dl (6.4-8.2)
[2020-08-19 09:35] LABS: ALBUMIN 1.8 g/dl (3.4-5.0)
[2020-08-19 10:32] LABS: ANISOCYTOSIS 0; HELMET CELLS 0; HOWELL-JOLLY BODIES 0; MACROCYTOSIS 0; OVALOCYTE 0; PLATELET ESTIMATE NORMAL; ROULEAU 0; SICKELED CELLS 0; TARGET CELLS 0; TEAR DROP CELLS 0; TOXIC GRANULATION 0
[2020-08-19] MEDS: D5-1/2NS+20 MEQ KCL - 20 MEQ/1,000 ML INFUS.BAG IV SCH (12:00)
[2020-08-19] MEDS: KCL 10 MEQ IVPB 10 MEQ/100 ML INFUS.BAG IVPB SCH ×3 (12:02→15:08)
[2020-08-19] MEDS: PREGABALIN 25 MG CAPSULE PO SCH (21:02)
[2020-08-20] MEDS: D5-1/2NS+20 MEQ KCL - 20 MEQ/1,000 ML INFUS.BAG IV SCH (00:07)
[2020-08-20] MEDS: PIPERACILLIN/TAZOB 2.25 GM 2.25 GM in DEXTROSE 5%-WATER - 50 ML IVPB SCH ×4 (03:26→21:55)
[2020-08-20] MEDS ORDERED: DEXTROSE 5%-WATER - 50 ML IVPB ONE ×4 (03:26→21:44)
[2020-08-20] MEDS ORDERED: PIPERACILLIN/TAZOBACTAM 2.25 GM VIAL IVPB ONE ×4 (03:26→21:44)
[2020-08-20] MEDS: HEPARIN NA (PORCINE) 5,000 UNITS/ML 1ML VIAL SQ SCH ×3 (06:07→21:54)
[2020-08-20] MEDS ORDERED: PT OWN MED DRAWER 7, Y5N ONE (08:54)
[2020-08-20] MEDS: DOCUSATE SODIUM 100 MG CAPSULE (FP) PO SCH (09:39)
[2020-08-20] MEDS: POLYETHYLENE GLYCOL 3350 119 GM BTL PO SCH (09:39)
[2020-08-20] MEDS: predniSONE 1 MG TABLET (FP) PO SCH (09:39)
[2020-08-20] MEDS: NIACIN 500 MG TABLET PO SCH (09:40)
[2020-08-20] MEDS: PANTOPRAZOLE SODIUM 40 MG VIAL IVPUSH SCH (09:40)
[2020-08-20] MEDS: CHLORHEXIDINE GLUCONATE 0.12% 15ML CUP MM SCH (09:40)
[2020-08-20 09:58] LABS: POTASSIUM 3.6 mmol/L (3.5-5.1)
[2020-08-20 10:08] LABS: CALCIUM 7.4 mg/dL (8.5-10.1)
[2020-08-20 10:09] LABS: ALBUMIN 1.5 g/dl (3.4-5.0); BLOOD UREA NITROGEN 15.1 mg/dL (7-18)
[2020-08-20 10:11] LABS: CREATININE 0.8 mg/dL (0.55-1.3)
[2020-08-20 10:13] LABS: BILIRUBIN,TOTAL 0.7 mg/dL (0.2-1)
[2020-08-20 10:14] LABS: TOT PROT 4.1 g/dl (6.4-8.2)
[2020-08-20 11:57] LABS: BASO % 0.2 % (0-2.0); EOS % 0.3 % (0-4.5); HEMATOCRIT 30.1 % (32.4-45.2); HEMOGLOBIN 10.3 GM/dL (10.7-15.3); LYMPH % 11.3 % (8-40); MCH 31.3 pg (25.7-33.7); MCHC 34.3 g/dl (32.0-36.0); MEAN CELL VOLUME 91.4 fl (80-96); MEAN PLT VOLUME 8.2 fl (7.5-11.1); MONO % 4.2 % (3.8-10.2); PLATELET COUNT 121 K/MM3 (134-434); RDW 14.2 % (11.6-15.6); WHITE BLOOD COUNT 7.3 K/mm3 (4.0-10.0)
[2020-08-20] MEDS: KCL 10 MEQ IVPB 10 MEQ/100 ML INFUS.BAG IVPB SCH ×3 (12:31→15:34)
[2020-08-20] MEDS ORDERED: AMINO ACIDS 4.25%/D5W 1,000 ML IV SCH (14:30)
[2020-08-20] MEDS: AMINO ACIDS 4.25%/D5W 1,000 ML IV SCH (15:51)
[2020-08-20] MEDS ORDERED: FAT EMULSIONS 20% 250 ML PREMIX INFUS.BAG IV SCH (22:00)
[2020-08-20] MEDS ORDERED: FAT EMULSION/OLIVE/SOY/PHOSPHO 250 ML IV SCH (22:00)
[2020-08-21] MEDS ORDERED: PIPERACILLIN/TAZOBACTAM 2.25 GM VIAL IVPB ONE ×3 (02:09→15:08)
[2020-08-21] MEDS ORDERED: DEXTROSE 5%-WATER - 50 ML IVPB ONE ×3 (02:09→15:08)
[2020-08-21] MEDS: PIPERACILLIN/TAZOB 2.25 GM 2.25 GM in DEXTROSE 5%-WATER - 50 ML IVPB SCH ×2 (02:13→09:15)
[2020-08-21] MEDS: HEPARIN NA (PORCINE) 5,000 UNITS/ML 1ML VIAL SQ SCH ×3 (05:29→21:40)
[2020-08-21] MEDS: AMINO ACIDS 4.25%/D5W 1,000 ML IV SCH ×3 (05:29→18:10)
[2020-08-21] MEDS: PANTOPRAZOLE SODIUM 40 MG VIAL IVPUSH SCH (09:21)
[2020-08-21 09:47] LABS: BASO % 0.2 % (0-2.0); EOS % 1.5 % (0-4.5); HEMATOCRIT 32.9 % (32.4-45.2); HEMOGLOBIN 11.3 GM/dL (10.7-15.3); LYMPH % 15.8 % (8-40); MCH 31.5 pg (25.7-33.7); MCHC 34.3 g/dl (32.0-36.0); MEAN CELL VOLUME 91.7 fl (80-96); MEAN PLT VOLUME 7.4 fl (7.5-11.1); NEUT % 77.5 % (42.8-82.8); PLATELET COUNT 149 K/MM3 (134-434); RBC 3.59 M/mm3 (3.60-5.2); RDW 13.8 % (11.6-15.6)
[2020-08-21 09:58] LABS: POTASSIUM 3.4 mmol/L (3.5-5.1)
[2020-08-21 10:06] LABS: CALCIUM 7.8 mg/dL (8.5-10.1)
[2020-08-21 10:07] LABS: ALBUMIN 1.7 g/dl (3.4-5.0); BLOOD UREA NITROGEN 17.5 mg/dL (7-18)
[2020-08-21 10:09] LABS: BILIRUBIN,TOTAL 0.5 mg/dL (0.2-1); TOT PROT 4.7 g/dl (6.4-8.2)
[2020-08-21 10:10] LABS: CREATININE 0.7 mg/dL (0.55-1.3)
[2020-08-21 11:01] LABS: ANISOCYTOSIS 0; MACROCYTOSIS 0; OVALOCYTE 1+; PLATELET ESTIMATE DECREASED
[2020-08-21] MEDS: KCL 10 MEQ IVPB 10 MEQ/100 ML INFUS.BAG IVPB SCH ×3 (11:06→17:22)
[2020-08-21] MEDS ORDERED: PROPOFOL 20 ML ONE ×2 (12:00)
[2020-08-21] MEDS ORDERED: SUCCINYLCHOLINE CHLORIDE 200 MG/10 ML SYRINGE ONE (12:00)
[2020-08-21] MEDS ORDERED: ceFAZolin SODIUM 1 GM VIAL IVPB ONE (12:10)
[2020-08-21] MEDS ORDERED: ONDANSETRON 4 MG/2 ML VIAL IVPUSH PRN (14:13)
[2020-08-21] MEDS ORDERED: CALAMINE 8% TOPICAL LOTION 177 ML BOTTLE TP PRN (14:13)
[2020-08-21] MEDS ORDERED: METOPROLOL TARTRATE 5 MG/5 ML VIAL IVPB PRN (14:13)
[2020-08-21] MEDS ORDERED: PIPERACILLIN/TAZOB 2.25 GM 2.25 GM in DEXTROSE 5%-WATER - 50 ML IVPB SCH (15:00)
[2020-08-21] MEDS: CEFAZOLIN 1 GM/D5W 1 GM/50 ML BAG IVPB SCH (17:22)
[2020-08-22] MEDS: FAT EMULSION/OLIVE/SOY/PHOSPHO 250 ML IV SCH ×2 (00:38→22:24)
[2020-08-22] MEDS: CEFAZOLIN 1 GM/D5W 1 GM/50 ML BAG IVPB SCH ×3 (02:52→18:39)
[2020-08-22] MEDS: HEPARIN NA (PORCINE) 5,000 UNITS/ML 1ML VIAL SQ SCH ×3 (05:37→22:26)
[2020-08-22] MEDS: AMINO ACIDS 4.25%/D5W 1,000 ML IV SCH ×2 (08:32→22:26)
[2020-08-22 08:43] LABS: BASO % 0.3 % (0-2.0); EOS % 0.8 % (0-4.5); HEMATOCRIT 31.6 % (32.4-45.2); HEMOGLOBIN 10.8 GM/dL (10.7-15.3); LYMPH % 14.3 % (8-40); MCH 31.2 pg (25.7-33.7); MCHC 34.3 g/dl (32.0-36.0); MEAN CELL VOLUME 90.9 fl (80-96); MEAN PLT VOLUME 7.2 fl (7.5-11.1); MONO % 5.4 % (3.8-10.2); NEUT % 79.2 % (42.8-82.8); PLATELET COUNT 173 K/MM3 (134-434); RBC 3.47 M/mm3 (3.60-5.2); RDW 13.7 % (11.6-15.6); WHITE BLOOD COUNT 5.6 K/mm3 (4.0-10.0)
[2020-08-22 09:07] LABS: POTASSIUM 3.7 mmol/L (3.5-5.1)
[2020-08-22 09:15] LABS: CALCIUM 8.1 mg/dL (8.5-10.1)
[2020-08-22 09:17] LABS: ALBUMIN 1.8 g/dl (3.4-5.0); BLOOD UREA NITROGEN 17.8 mg/dL (7-18)
[2020-08-22 09:19] LABS: CREATININE 0.7 mg/dL (0.55-1.3)
[2020-08-22 09:21] LABS: BILIRUBIN,TOTAL 0.4 mg/dL (0.2-1)
[2020-08-22] MEDS: KCL 10 MEQ IVPB 10 MEQ/100 ML INFUS.BAG IVPB SCH ×3 (10:36→15:47)
[2020-08-22 12:37] LABS: ANISOCYTOSIS 1+; MACROCYTOSIS 2+; PLATELET ESTIMATE NORMAL; ROULEAU 1+
[2020-08-22] MEDS: PANTOPRAZOLE SODIUM 40 MG VIAL IVPUSH SCH (12:46)
[2020-08-22] MEDS ORDERED: PT OWN MED DRAWER 7, Y5N ONE (21:37)
[2020-08-23] MEDS: CEFAZOLIN 1 GM/D5W 1 GM/50 ML BAG IVPB SCH ×3 (02:49→17:21)
[2020-08-23] MEDS: HEPARIN NA (PORCINE) 5,000 UNITS/ML 1ML VIAL SQ SCH ×3 (06:37→21:21)
[2020-08-23 08:36] LABS: BASO % 0.3 % (0-2.0); EOS % 2.1 % (0-4.5); HEMATOCRIT 31.3 % (32.4-45.2); HEMOGLOBIN 10.8 GM/dL (10.7-15.3); LYMPH % 15.9 % (8-40); MCHC 34.4 g/dl (32.0-36.0); MEAN CELL VOLUME 90.3 fl (80-96); MEAN PLT VOLUME 6.8 fl (7.5-11.1); MONO % 5.3 % (3.8-10.2); NEUT % 76.4 % (42.8-82.8); PLATELET COUNT 218 K/MM3 (134-434); RBC 3.47 M/mm3 (3.60-5.2); RDW 13.6 % (11.6-15.6); WHITE BLOOD COUNT 6.1 K/mm3 (4.0-10.0)
[2020-08-23 09:00] LABS: POTASSIUM 3.3 mmol/L (3.5-5.1)
[2020-08-23 09:01] LABS: CALCIUM 7.8 mg/dL (8.5-10.1)
[2020-08-23 09:02] LABS: ALBUMIN 1.8 g/dl (3.4-5.0); BLOOD UREA NITROGEN 16.1 mg/dL (7-18)
[2020-08-23 09:05] LABS: CREATININE 0.6 mg/dL (0.55-1.3)
[2020-08-23 09:07] LABS: BILIRUBIN,TOTAL 0.3 mg/dL (0.2-1); TOT PROT 4.8 g/dl (6.4-8.2)
[2020-08-23] MEDS: PANTOPRAZOLE SODIUM 40 MG VIAL IVPUSH SCH (09:09)
[2020-08-23] MEDS: KCL 10 MEQ IVPB 10 MEQ/100 ML INFUS.BAG IVPB SCH ×3 (11:10→15:14)
[2020-08-23 11:18] LABS: PLATELET ESTIMATE NORMAL
[2020-08-24] MEDS: CEFAZOLIN 1 GM/D5W 1 GM/50 ML BAG IVPB SCH ×3 (01:05→17:10)
[2020-08-24] MEDS: FAT EMULSION/OLIVE/SOY/PHOSPHO 250 ML IV SCH ×2 (01:07→21:13)
[2020-08-24] MEDS: AMINO ACIDS 4.25%/D5W 1,000 ML IV SCH ×3 (01:08→13:35)
[2020-08-24] MEDS: HEPARIN NA (PORCINE) 5,000 UNITS/ML 1ML VIAL SQ SCH ×3 (05:52→21:09)
[2020-08-24 09:20] LABS: BASO % 0.5 % (0-2.0); EOS % 1.7 % (0-4.5); HEMATOCRIT 32.3 % (32.4-45.2); HEMOGLOBIN 11.2 GM/dL (10.7-15.3); LYMPH % 14.2 % (8-40); MCH 31.3 pg (25.7-33.7); MCHC 34.8 g/dl (32.0-36.0); MEAN CELL VOLUME 89.9 fl (80-96); MEAN PLT VOLUME 7.3 fl (7.5-11.1); MONO % 3.5 % (3.8-10.2); NEUT % 80.1 % (42.8-82.8); PLATELET COUNT 223 K/MM3 (134-434); RBC 3.59 M/mm3 (3.60-5.2); RDW 13.4 % (11.6-15.6); WHITE BLOOD COUNT 7.1 K/mm3 (4.0-10.0)
[2020-08-24 09:29] LABS: POTASSIUM 3.6 mmol/L (3.5-5.1)
[2020-08-24 09:31] LABS: CALCIUM 8.1 mg/dL (8.5-10.1)
[2020-08-24 09:35] LABS: ALBUMIN 1.8 g/dl (3.4-5.0); BLOOD UREA NITROGEN 16.4 mg/dL (7-18)
[2020-08-24 09:38] LABS: CREATININE 0.5 mg/dL (0.55-1.3)
[2020-08-24 09:39] LABS: BILIRUBIN,TOTAL 0.3 mg/dL (0.2-1); TOT PROT 4.8 g/dl (6.4-8.2)
[2020-08-24 10:52] LABS: ANISOCYTOSIS 1+; MACROCYTOSIS 0; OVALOCYTE 1+; PLATELET ESTIMATE NORMAL
[2020-08-24] MEDS: PANTOPRAZOLE SODIUM 40 MG VIAL IVPUSH SCH (10:55)
[2020-08-24] MEDS: KCL 10 MEQ IVPB 10 MEQ/100 ML INFUS.BAG IVPB SCH ×3 (10:56→17:10)
[2020-08-24] MEDS ORDERED: PT OWN MED DRAWER 7, Y5N ONE (21:11)
[2020-08-25] MEDS: CEFAZOLIN 1 GM/D5W 1 GM/50 ML BAG IVPB SCH ×2 (01:22→09:43)
[2020-08-25] MEDS: AMINO ACIDS 4.25%/D5W 1,000 ML IV SCH ×6 (06:36→22:57)
[2020-08-25] MEDS: HEPARIN NA (PORCINE) 5,000 UNITS/ML 1ML VIAL SQ SCH ×3 (06:36→22:57)
[2020-08-25 09:10] LABS: BASO % 0.6 % (0-2.0); EOS % 1.6 % (0-4.5); HEMATOCRIT 30.4 % (32.4-45.2); HEMOGLOBIN 10.6 GM/dL (10.7-15.3); LYMPH % 20.1 % (8-40); MCH 31.4 pg (25.7-33.7); MCHC 34.7 g/dl (32.0-36.0); MEAN CELL VOLUME 90.4 fl (80-96); MEAN PLT VOLUME 6.9 fl (7.5-11.1); MONO % 3.9 % (3.8-10.2); NEUT % 73.8 % (42.8-82.8); PLATELET COUNT 250 K/MM3 (134-434); RBC 3.36 M/mm3 (3.60-5.2); RDW 13.6 % (11.6-15.6); WHITE BLOOD COUNT 6.1 K/mm3 (4.0-10.0)
[2020-08-25 09:22] LABS: POTASSIUM 3.9 mmol/L (3.5-5.1)
[2020-08-25 09:35] LABS: BLOOD UREA NITROGEN 16.7 mg/dL (7-18); CALCIUM 8.5 mg/dL (8.5-10.1)
[2020-08-25 09:39] LABS: CREATININE 0.5 mg/dL (0.55-1.3)
[2020-08-25] MEDS: PANTOPRAZOLE SODIUM 40 MG VIAL IVPUSH SCH (09:45)
[2020-08-25 12:56] LABS: ANISOCYTOSIS 1+; MACROCYTOSIS 1+; OVALOCYTE 1+; PLATELET ESTIMATE NORMAL
[2020-08-25] MEDS: FAT EMULSION/OLIVE/SOY/PHOSPHO 250 ML IV SCH (22:55)
[2020-08-25] MEDS: CEPHALEXIN MONOHYDRATE 500 MG CAPSULE (UD) PO SCH (22:57)
[2020-08-26] MEDS: HEPARIN NA (PORCINE) 5,000 UNITS/ML 1ML VIAL SQ SCH ×3 (06:37→21:17)
[2020-08-26] MEDS: CEPHALEXIN MONOHYDRATE 500 MG CAPSULE (UD) PO SCH ×2 (11:16→21:17)
[2020-08-26] MEDS: PANTOPRAZOLE SODIUM 40 MG VIAL IVPUSH SCH (11:17)
[2020-08-26] MEDS: AMINO ACIDS 4.25%/D5W 1,000 ML IV SCH (11:26)
[2020-08-26] MEDS: FAT EMULSION/OLIVE/SOY/PHOSPHO 250 ML IV SCH (22:07)
[2020-08-27] MEDS: AMINO ACIDS 4.25%/D5W 1,000 ML IV SCH ×2 (00:15→19:00)
[2020-08-27] MEDS: HEPARIN NA (PORCINE) 5,000 UNITS/ML 1ML VIAL SQ SCH ×3 (07:11→21:15)
[2020-08-27 09:52] LABS: BASO % 0.8 % (0-2.0); EOS % 1.3 % (0-4.5); HEMOGLOBIN 10.9 GM/dL (10.7-15.3); LYMPH % 25.7 % (8-40); MCH 31.4 pg (25.7-33.7); MCHC 35.1 g/dl (32.0-36.0); MEAN CELL VOLUME 89.4 fl (80-96); MEAN PLT VOLUME 6.9 fl (7.5-11.1); MONO % 5.1 % (3.8-10.2); NEUT % 67.1 % (42.8-82.8); PLATELET COUNT 295 K/MM3 (134-434); RBC 3.47 M/mm3 (3.60-5.2); RDW 13.5 % (11.6-15.6); WHITE BLOOD COUNT 4.3 K/mm3 (4.0-10.0)
[2020-08-27 10:06] LABS: POTASSIUM 3.7 mmol/L (3.5-5.1)
[2020-08-27] MEDS: PANTOPRAZOLE SODIUM 40 MG VIAL IVPUSH SCH (10:11)
[2020-08-27] MEDS: CEPHALEXIN MONOHYDRATE 500 MG CAPSULE (UD) PO SCH ×2 (10:11→21:15)
[2020-08-27 10:28] LABS: BLOOD UREA NITROGEN 18.4 mg/dL (7-18)
[2020-08-27 10:29] LABS: CALCIUM 8.6 mg/dL (8.5-10.1)
[2020-08-27 10:30] LABS: CREATININE 0.5 mg/dL (0.55-1.3)
[2020-08-27] MEDS: FAT EMULSION/OLIVE/SOY/PHOSPHO 250 ML IV SCH (21:15)
[2020-08-28] MEDS: HEPARIN NA (PORCINE) 5,000 UNITS/ML 1ML VIAL SQ SCH ×2 (05:15→15:00)
[2020-08-28] MEDS: CEPHALEXIN MONOHYDRATE 500 MG CAPSULE (UD) PO SCH ×2 (10:04→21:21)
[2020-08-28] MEDS: PANTOPRAZOLE SODIUM 40 MG VIAL IVPUSH SCH (10:04)
[2020-08-28] MEDS: FAT EMULSION/OLIVE/SOY/PHOSPHO 250 ML IV SCH (21:21)
[2020-08-29] MEDS: AMINO ACIDS 4.25%/D5W 1,000 ML IV SCH ×2 (07:58→18:24)
[2020-08-29] MEDS: ENOXAPARIN NA (PORCINE) 40 MG/0.4 ML DISP.SYRIN SQ SCH (10:33)
[2020-08-29] MEDS: PANTOPRAZOLE SODIUM 40 MG VIAL IVPUSH SCH (10:33)
[2020-08-29] MEDS: CEPHALEXIN MONOHYDRATE 500 MG CAPSULE (UD) PO SCH ×2 (10:34→21:55)
[2020-08-29] MEDS: FAT EMULSION/OLIVE/SOY/PHOSPHO 250 ML IV SCH (21:54)
[2020-08-30] MEDS: AMINO ACIDS 4.25%/D5W 1,000 ML IV SCH ×2 (07:00→21:00)
[2020-08-30] MEDS: CEPHALEXIN MONOHYDRATE 500 MG CAPSULE (UD) PO SCH ×2 (10:33→21:38)
[2020-08-30] MEDS: ENOXAPARIN NA (PORCINE) 40 MG/0.4 ML DISP.SYRIN SQ SCH (10:33)
[2020-08-30] MEDS: PANTOPRAZOLE SODIUM 40 MG VIAL IVPUSH SCH (10:38)
[2020-08-30] MEDS: FAT EMULSION/OLIVE/SOY/PHOSPHO 250 ML IV SCH (21:39)
[2020-08-31 08:26] LABS: BASO % 0.8 % (0-2.0); EOS % 0.9 % (0-4.5); HEMATOCRIT 29.9 % (32.4-45.2); HEMOGLOBIN 10.5 GM/dL (10.7-15.3); MCH 31.4 pg (25.7-33.7); MCHC 35.2 g/dl (32.0-36.0); MEAN CELL VOLUME 89.2 fl (80-96); MEAN PLT VOLUME 6.9 fl (7.5-11.1); MONO % 7.1 % (3.8-10.2); NEUT % 74.2 % (42.8-82.8); PLATELET COUNT 274 K/MM3 (134-434); RBC 3.35 M/mm3 (3.60-5.2); RDW 13.3 % (11.6-15.6); WHITE BLOOD COUNT 6.7 K/mm3 (4.0-10.0)
[2020-08-31 08:28] LABS: POTASSIUM 3.8 mmol/L (3.5-5.1)
[2020-08-31 08:30] LABS: CALCIUM 8.9 mg/dL (8.5-10.1)
[2020-08-31 08:31] LABS: BLOOD UREA NITROGEN 26.5 mg/dL (7-18)
[2020-08-31 08:34] LABS: CREATININE 0.5 mg/dL (0.55-1.3)
[2020-08-31] MEDS: PANTOPRAZOLE SODIUM 40 MG VIAL IVPUSH SCH (09:13)
[2020-08-31] MEDS: ENOXAPARIN NA (PORCINE) 40 MG/0.4 ML DISP.SYRIN SQ SCH (09:13)
[2020-08-31] MEDS: CEPHALEXIN MONOHYDRATE 500 MG CAPSULE (UD) PO SCH ×2 (09:14→21:37)
[2020-08-31] MEDS: AMINO ACIDS 4.25%/D5W 1,000 ML IV SCH ×2 (09:14→20:32)
[2020-08-31] MEDS: FAT EMULSION/OLIVE/SOY/PHOSPHO 250 ML IV SCH (21:33)
[2020-09-01] MEDS: AMINO ACIDS 4.25%/D5W 1,000 ML IV SCH (01:00)
[2020-09-01] MEDS: PANTOPRAZOLE SODIUM 40 MG VIAL IVPUSH SCH (11:23)
[2020-09-01] MEDS: CEPHALEXIN MONOHYDRATE 500 MG CAPSULE (UD) PO SCH (11:24)
[2020-09-01] MEDS: ENOXAPARIN NA (PORCINE) 40 MG/0.4 ML DISP.SYRIN SQ SCH (11:24)
[2020-09-01] MEDS: AMINO ACIDS 4.25%/D5W 2,000 ML IV SCH ×2 (13:44→17:41)
[2020-09-01] MEDS ORDERED: BISACODYL 10 MG SUPP.RECT PR ONE (19:15)
[2020-09-01] MEDS: FAT EMULSION/OLIVE/SOY/PHOSPHO 250 ML IV SCH (21:35)
[2020-09-02] MEDS: ENOXAPARIN NA (PORCINE) 40 MG/0.4 ML DISP.SYRIN SQ SCH (10:41)
[2020-09-02] MEDS: AMINO ACIDS 4.25%/D5W 2,000 ML IV SCH ×2 (10:41→16:10)
[2020-09-02] MEDS: PANTOPRAZOLE SODIUM 40 MG VIAL IVPUSH SCH (10:41)
[2020-09-03] MEDS: FAT EMULSION/OLIVE/SOY/PHOSPHO 250 ML IV SCH ×2 (00:01→21:48)
[2020-09-03] MEDS: PANTOPRAZOLE SODIUM 40 MG VIAL IVPUSH SCH (10:03)
[2020-09-03] MEDS: ENOXAPARIN NA (PORCINE) 40 MG/0.4 ML DISP.SYRIN SQ SCH (10:03)
[2020-09-03] MEDS: AMINO ACIDS 4.25%/D5W 2,000 ML IV SCH (11:33)
[2020-09-04] MEDS: ENOXAPARIN NA (PORCINE) 40 MG/0.4 ML DISP.SYRIN SQ SCH (10:32)
[2020-09-04] MEDS: PANTOPRAZOLE SODIUM 40 MG VIAL IVPUSH SCH (12:00)
[2020-09-04] MEDS: AMINO ACIDS 4.25%/D5W 2,000 ML IV SCH (17:00)
[2020-09-04] MEDS ORDERED: PT OWN MED DRAWER 7, Y5N ONE (23:48)
[2020-09-04] MEDS: FAT EMULSION/OLIVE/SOY/PHOSPHO 250 ML IV SCH (23:51)
[2020-09-05] MEDS: PANTOPRAZOLE SODIUM 40 MG VIAL IVPUSH SCH (10:34)
[2020-09-05] MEDS: ENOXAPARIN NA (PORCINE) 40 MG/0.4 ML DISP.SYRIN SQ SCH (10:34)
[2020-09-05] MEDS: AMINO ACIDS 4.25%/D5W 2,000 ML IV SCH ×2 (12:07→23:06)
[2020-09-05] MEDS: FAT EMULSION/OLIVE/SOY/PHOSPHO 250 ML IV SCH (23:08)
[2020-09-06] MEDS: PANTOPRAZOLE SODIUM 40 MG VIAL IVPUSH SCH (10:20)
[2020-09-06] MEDS: ENOXAPARIN NA (PORCINE) 40 MG/0.4 ML DISP.SYRIN SQ SCH (10:20)
[2020-09-06 10:56] LABS: BASO % 0.3 % (0-2.0); HEMATOCRIT 32.8 % (32.4-45.2); HEMOGLOBIN 11.2 GM/dL (10.7-15.3); LYMPH % 20.7 % (8-40); MCH 30.9 pg (25.7-33.7); MCHC 34.3 g/dl (32.0-36.0); MEAN CELL VOLUME 90.1 fl (80-96); MEAN PLT VOLUME 7.7 fl (7.5-11.1); MONO % 8.5 % (3.8-10.2); NEUT % 68.5 % (42.8-82.8); PLATELET COUNT 276 K/MM3 (134-434); RBC 3.64 M/mm3 (3.60-5.2); RDW 13.9 % (11.6-15.6)
[2020-09-06 11:17] LABS: POTASSIUM 4.2 mmol/L (3.5-5.1)
[2020-09-06 11:21] LABS: BLOOD UREA NITROGEN 28.3 mg/dL (7-18)
[2020-09-06 11:24] LABS: CREATININE 0.7 mg/dL (0.55-1.3)
[2020-09-06] MEDS: FAT EMULSION/OLIVE/SOY/PHOSPHO 250 ML IV SCH (22:44)
[2020-09-07] MEDS: AMINO ACIDS 4.25%/D5W 2,000 ML IV SCH (02:40)
[2020-09-07] MEDS: PANTOPRAZOLE SODIUM 40 MG VIAL IVPUSH SCH (10:22)
[2020-09-07] MEDS: ENOXAPARIN NA (PORCINE) 40 MG/0.4 ML DISP.SYRIN SQ SCH (10:22)
[2020-09-07 12:07] VITALS: BP 121/61; PULSE 87; TEMP 97.9
== END 2020-09-07 12:43 | DRG 853 ==
LOC: JER 10:49 → JERBED 15:41 → J6S 21:07
PROVIDERS: ADMIT Internal Medicine; ATTEND Internal Medicine
PROC: 0TC78ZZ Extirpation of Matter from Left Ureter, Via Natural or Artificial Opening Endoscopic (ICD-10-PCS; principal; 2020-08-21 14:00)
PROC: BT0BZZZ Plain Radiography of Bladder and Urethra (ICD-10-PCS; 2020-08-21 14:00)
DX: A41.89 Other specified sepsis (principal); R53.2 Functional quadriplegia; L89.153 Pressure ulcer of sacral region, stage 3; L12.0 Bullous pemphigoid; N13.6 Pyonephrosis; E87.1 Hypo-osmolality and hyponatremia; G30.9 Alzheimer's disease, unspecified; F02.80 Dementia in other diseases classified elsewhere, unspecified severity, without behavioral disturbance, psychotic disturbance, mood disturbance, and anxiety; F31.9 Bipolar disorder, unspecified; F34.0 Cyclothymic disorder; M81.0 Age-related osteoporosis without current pathological fracture; M54.5 Low back pain; R13.10 Dysphagia, unspecified; K59.09 Other constipation; F41.9 Anxiety disorder, unspecified; D72.829 Elevated white blood cell count, unspecified; R00.0 Tachycardia, unspecified; K80.20 Calculus of gallbladder without cholecystitis without obstruction; B96.20 Unspecified Escherichia coli [E. coli] as the cause of diseases classified elsewhere; L89.152 Pressure ulcer of sacral region, stage 2; E77.8 Other disorders of glycoprotein metabolism; R11.10 Vomiting, unspecified; E87.6 Hypokalemia; R26.81 Unsteadiness on feet
CPT/HCPCS: 36415; 71045-TC-FY; 74176-TC; 76000-TC-FY; 76775-TC; 76856-TC; 80048; 80053; 80061; 81003; 82550; 82728; 83036; 83540; 83550; 83690; 83721; 83880; 84443; 84484; 85025; 87040; 87086; 87186; 93005; 93010; 94760; 97161-GP; 99285-25; C9803; G0480; J1644; U0003; U0005